=== PATIENT | female | born 1990 | race Caucasian/White ===

== ENCOUNTER → 2017-01-17 | Outpatient (CLI) | payer OTHER ==
[~2017-01-17] MED LIST: Z.0.BCPILL PO
[2017-01-17 07:40] LABS: BASOPHIL % 0.2 % (0.0-2.0); EOSINOPHIL # 0.1 TH/MM3 (0-0.4); EOSINOPHIL % 1.2 % (0.0-4.0); HEMATOCRIT 40.5 % (35.0-46.0); HEMO FLAGS DIFF FINAL; LYMPH % 33.9 % (9.0-44.0); MEAN CELL VOLUME 87.1 FL (80.0-100.0); MEAN CORPUSCULAR HEMOGLOBIN 28.2 PG (27.0-34.0); MEAN CORPUSCULAR HGB CONC 32.4 % (32.0-36.0); MONO % 5.7 % (0.0-8.0); PLATELET COUNT 341 TH/MM3 (150-450); RED BLOOD COUNT 4.66 MIL/MM3 (4.00-5.30); RED CELL DISTRIBUTION WIDTH 13.4 % (11.6-17.2); WHITE BLOOD COUNT 11.8 TH/MM3 (4.0-11.0)
[2017-01-17 07:59] LABS: BACTERIA, URINE OCC /hpf; BLOOD, URINE NEG (NEG); GLUCOSE,URINE NEG (NEG); KETONE, URINE NEG (NEG); MUCUS URINE FEW /lpf (OCC); NITRITE,URINE NEG (NEG); PH, URINE 5.5 (5.0-8.5); SQUAMOUS EPITHELIAL CELL URINE 8 /hpf (0-5); URINE COLOR YELLOW (YELLW/STRAW)
[2017-01-17 08:09] LABS: WESTERGREN SEDIMENTATION RATE 47 mm/hr (0-20)
[2017-01-17 08:11] LABS: ANION GAP 6 MEQ/L (5-15); AST (GOT) 19 U/L (15-37); BICARBONATE 24.8 MEQ/L (21.0-32.0); BLOOD UREA NITROGEN 9 MG/DL (7-18); CHLORIDE 109 MEQ/L (98-107); GLOMERULAR FILTRATION RATE 107 ML/MIN (>89); GLUCOSE,FASTING 88 MG/DL (74-99); POTASSIUM 4.1 MEQ/L (3.5-5.1); SODIUM (NA) 140 MEQ/L (136-145)
[2017-01-17 08:35] LABS: ALKALINE PHOSPHATASE 68 U/L (45-117); ALT (GPT) 28 U/L (10-53); FERRITIN 15 NG/ML (8-252); HDL CHOLESTEROL 31.5 MG/DL (40.0-60.0); TOTAL BILIRUBIN ADULT 0.2 MG/DL (0.2-1.0)
[2017-01-17 08:42] LABS: CREATINE KINASE 82 U/L (26-192)
[2017-01-17 08:43] LABS: LDL CHOLESTEROL 73 MG/DL (0-99); TRANSFERRIN IRON PROFILE 280 MG/DL (200-360)
== END ==
LOC: CLAB 06:57
PROVIDERS: ATTEND Family Medicine
DX: E78.2 Mixed hyperlipidemia (principal); J31.0 Chronic rhinitis; M79.7 Fibromyalgia; M54.5 Low back pain; M54.2 Cervicalgia; R82.90 Unspecified abnormal findings in urine
CPT/HCPCS: 36415; 80053; 80061; 81001; 82306; 82550; 82607; 82728; 82746; 83540; 83550; 84443; 85025; 85652; 87086

== ENCOUNTER → 2017-05-14 | Outpatient (CLI) | payer OTHER ==
[2017-05-14 07:30] LABS: AUTOMATED NEUTROPHIL # 7.6 TH/MM3 (1.8-7.7); BASOPHIL % 0.3 % (0.0-2.0); EOSINOPHIL # 0.2 TH/MM3 (0-0.4); EOSINOPHIL % 1.4 % (0.0-4.0); HEMATOCRIT 43.4 % (35.0-46.0); HEMO FLAGS DIFF FINAL; LYMPH % 33.2 % (9.0-44.0); LYMPHOCYTE # 4.3 TH/MM3 (1.0-4.8); MEAN CELL VOLUME 90.1 FL (80.0-100.0); MEAN CORPUSCULAR HGB CONC 32.2 % (32.0-36.0); MONO % 5.8 % (0.0-8.0); NEUT % 59.3 % (16.0-70.0); PLATELET COUNT 342 TH/MM3 (150-450); RED BLOOD COUNT 4.82 MIL/MM3 (4.00-5.30); RED CELL DISTRIBUTION WIDTH 13.4 % (11.6-17.2); WHITE BLOOD COUNT 12.9 TH/MM3 (4.0-11.0)
[2017-05-14 07:50] LABS: BACTERIA, URINE FEW /hpf; BLOOD, URINE NEG (NEG); GLUCOSE,URINE NEG (NEG); KETONE, URINE NEG (NEG); NITRITE,URINE NEG (NEG); PH, URINE 6.5 (5.0-8.5); SQUAMOUS EPITHELIAL CELL URINE 2 /hpf (0-5); URINE COLOR LIGHT-YELLOW (YELLW/STRAW)
[2017-05-14 07:58] LABS: ANION GAP 6 MEQ/L (5-15); AST (GOT) 10 U/L (15-37); BICARBONATE 24.6 MEQ/L (21.0-32.0); BLOOD UREA NITROGEN 5 MG/DL (7-18); CHLORIDE 107 MEQ/L (98-107); GLOMERULAR FILTRATION RATE 106 ML/MIN (>89); GLUCOSE,FASTING 89 MG/DL (74-99); SODIUM (NA) 138 MEQ/L (136-145)
[2017-05-14 08:11] LABS: WESTERGREN SEDIMENTATION RATE 35 mm/hr (0-20)
[2017-05-14 08:24] LABS: ALKALINE PHOSPHATASE 64 U/L (45-117); ALT (GPT) 28 U/L (10-53); FERRITIN 18 NG/ML (8-252); HDL CHOLESTEROL 33.9 MG/DL (40.0-60.0); LDL CHOLESTEROL 100 MG/DL (0-99); TOTAL BILIRUBIN ADULT 0.3 MG/DL (0.2-1.0); TRANSFERRIN IRON PROFILE 265 MG/DL (200-360)
[2017-05-14 08:39] LABS: CREATINE KINASE 47 U/L (26-192)
== END ==
LOC: CLAB 06:44
PROVIDERS: ATTEND Family Medicine
DX: E78.2 Mixed hyperlipidemia (principal); E53.8 Deficiency of other specified B group vitamins; E55.9 Vitamin D deficiency, unspecified; E03.9 Hypothyroidism, unspecified; M54.5 Low back pain; M54.2 Cervicalgia; M79.7 Fibromyalgia; J31.0 Chronic rhinitis
CPT/HCPCS: 36415; 80053; 80061; 81001; 82306; 82550; 82607; 82728; 82746; 83540; 83550; 84443; 85025; 85652; 87086

== ENCOUNTER 2017-08-26 17:11 | Emergency (ER) | payer OTHER ==
[~2017-08-26] VITALS: Ht 162.6 cm; Wt 100.0 kg
[2017-08-26 17:13] VITALS: BP 172/86; PULSE 114; RESP 18; TEMP 98.2; O2SAT 99
[2017-08-26] MEDS ORDERED: LEVO50TA4 PO (17:17)
--- NOTE | 2017-08-26 17:49 | PD ---
HPI Chief Complaint: Injury Time Seen by Provider: 17:36 Travel History International Travel<30 days: No Contact w/Intl Traveler<30days: No Traveled to known affect area: No History of Present Illness HPI 27-year-old female here for evaluation of right ankle pain and swelling after an inversion injury that occurred at around 3:00 PM. The patient reports similar injury in December of this year, however she did not have the ankle evaluated at that time. Pain is moderate, constant, worse with weightbearing. She is unable to bear weight because of the pain. She denies right knee pain or right foot pain. No other injuries. She took ibuprofen and shortly after the injury occurred. [facility]LY [facility] Past Medical History Immunizations Current: Yes Thyroid Disease: Yes (HYPO) Tetanus Vaccination: > 5 Years Influenza Vaccination: No ?: Unknown LMP: 08/19/17 : 0 Past Surgical History Surgical History: No Previous Surgery Social History Alcohol Use: Yes (RARE) Tobacco Use: No Substance Use: No Allergies-Medications (Allergen,Severity, Reaction): Coded Allergies: No Known Allergies (Verified Adverse Reaction, Unknown, 08/26/17) Reported Meds & Prescriptions Reported Meds & Active Scripts Active Reported Levothyroxine (Levothyroxine Sodium) 50 Mcg Tab 50 Mcg PO DAILY Review of Systems Except as stated in HPI: all other systems reviewed are Neg Physical Exam Narrative GENERAL: Well-developed, well-nourished, comfortable, no apparent distress. SKIN: Focused skin assessment warm/dry. Mild ecchymosis to right lateral ankle. HEAD: Atraumatic. Normocephalic. CARDIOVASCULAR: Regular rate and rhythm. Bilateral dorsalis pedis pulses are brisk and equal. RESPIRATORY: No accessory muscle use. MUSCULOSKELETAL: Right ankle with moderate diffuse edema greatest over the lateral malleolus with ecchymosis over lateral malleolus, no lacerations. There is moderate lateral and medial malleolar or tenderness. No tenderness or swelling to the right foot, no tenderness over the proximal right fifth metatarsal. No right proximal fibular tenderness. Normal range of motion in the right foot and ankle. All compartments in the right lower extremity are supple. Right lower extremity is neurovascularly intact. NEUROLOGICAL: Awake and alert. No obvious cranial nerve deficits. Motor grossly within normal limits. Normal speech. PSYCHIATRIC: Appropriate mood and affect; insight and judgment normal. Data Data Last Documented VS Vital Signs Date Time Temp Pulse Resp B/P (MAP) Pulse Ox O2 Delivery O2 Flow Rate FiO2 08/26/17 18:25 86 08/26/17 17:13 98.2 18 99 Orders Orders Ankle, Complete ([id number]) (08/26/17 ) Crutches (08/26/17 18:23) Boot Fracture (08/26/17 ) MDM Medical Decision Making Medical Screen Exam Complete: Yes Emergency Medical Condition: Yes Differential Diagnosis Right ankle sprain versus fracture Narrative Course Initial vital signs show heart rate 114, blood pressure 172/86, pulse ox 99% on room air, oral temp of 98.2F. Repeat heart rate without any intervention is 86. Right ankle x-ray: Small fracture fragment at the distal aspect of the lateral malleolus with soft tissue swelling. Patient has no right proximal fibular tenderness. She will be placed in a fracture boot and provided crutches and advised to follow-up with an orthopedist in the next week. I offered pain medication, however the patient is happy with taking ibuprofen. MATEUS endorsed. She was informed on when to return to the emergency department. She verbalizes understanding and agreement with plan. Diagnosis Primary Impression: Closed right ankle fracture Qualified Codes: S82.891A - Other fracture of right lower leg, initial encounter for closed fracture Referrals: Dat Thomson MD 1 week Orthopedist Additional Instructions: Follow-up with orthopedist Dr. Thomson or an orthopedist of your choice this week. Return to the emergency department for worsening symptoms or any other concerns. Disposition: 01 DISCHARGE HOME Condition: Stable Alejandro Williamson MD Aug 26, 2017 17:49
--- NOTE | 2017-08-26 18:05 | RADRPT ---
EXAM DATE/TIME: 08/26/2017 17:51 [facility] COMPARISON: No previous studies available for comparison. INDICATIONS : Pain and lateral swelling from twisting right ankle injury. MEDICAL HISTORY : None. SURGICAL HISTORY : None. ENCOUNTER: Initial ACUITY: 1 day PAIN SCORE: 8/10 LOCATION: Right ankle FINDINGS: There is soft tissue swelling seen laterally. There appears to be a small fracture fragment at the in ferior lateral distal fibula. Its appears to represent a suspected avulsion fracture. The ankle is no rmally aligned. No other fracture seen. CONCLUSION: Small fracture fragment at the distal aspect of the lateral malleolus with soft tissue swelling. Misael Rodriguez MD on August 26, 2017 at 18:02 Board Certified Radiologist. This report was verified electronically.
[2017-08-26 18:25] VITALS: BP_SYST 86; PULSE 86
== END 2017-08-26 18:51 | disposition home or self-care (01) ==
LOC: NEPD 17:11
DX: S82.61XA Displaced fracture of lateral malleolus of right fibula, initial encounter for closed fracture (principal); E03.9 Hypothyroidism, unspecified; X50.1XXA Overexertion from prolonged static or awkward postures, initial encounter; Z79.899 Other long term (current) drug therapy
CPT/HCPCS: 73610; 99283; E0113; L1830; L2114

== ENCOUNTER → 2017-10-05 | Outpatient (CLI) | payer OTHER ==
[2017-10-05 09:09] LABS: AUTOMATED NEUTROPHIL # 6.9 TH/MM3 (1.8-7.7); BACTERIA, URINE FEW /hpf; BASOPHIL # 0.1 TH/MM3 (0-0.2); BASOPHIL % 0.5 % (0.0-2.0); BILIRUBIN, URINE NEG (NEG); BLOOD, URINE NEG (NEG); EOSINOPHIL # 0.1 TH/MM3 (0-0.4); EOSINOPHIL % 1.4 % (0.0-4.0); GLUCOSE,URINE NEG (NEG); HEMATOCRIT 42.9 % (35.0-46.0); HEMO FLAGS DIFF FINAL; HEMOGLOBIN 14.5 GM/DL (11.6-15.3); KETONE, URINE NEG (NEG); LYMPH % 28.4 % (9.0-44.0); LYMPHOCYTE # 3.1 TH/MM3 (1.0-4.8); MEAN CELL VOLUME 89.3 FL (80.0-100.0); MEAN CORPUSCULAR HEMOGLOBIN 30.2 PG (27.0-34.0); MEAN CORPUSCULAR HGB CONC 33.9 % (32.0-36.0); MEAN PLATELET VOLUME 7.5 FL (7.0-11.0); MONO % 5.7 % (0.0-8.0); MONOCYTE # 0.6 TH/MM3 (0-0.9); MUCUS URINE FEW /lpf (OCC); NITRITE,URINE NEG (NEG); PLATELET COUNT 348 TH/MM3 (150-450); RED CELL DISTRIBUTION WIDTH 13.4 % (11.6-17.2); SQUAMOUS EPITHELIAL CELL URINE 5 /hpf (0-5); URINE COLOR YELLOW (YELLW/STRAW); URINE LEUKOCYTE ESTERASE MOD (NEG); WHITE BLOOD COUNT 10.8 TH/MM3 (4.0-11.0)
[2017-10-05 09:36] LABS: WESTERGREN SEDIMENTATION RATE 17 mm/hr (0-20)
[2017-10-05 09:38] LABS: ALBUMIN 3.4 GM/DL (3.4-5.0); ANION GAP 10 MEQ/L (5-15); AST (GOT) 19 U/L (15-37); BICARBONATE 21.1 MEQ/L (21.0-32.0); BLOOD UREA NITROGEN 7 MG/DL (7-18); CALCIUM 8.8 MG/DL (8.5-10.1); CHLORIDE 108 MEQ/L (98-107); CHOLESTEROL 157 MG/DL (120-200); CREATININE 0.63 MG/DL (0.50-1.00); GLOMERULAR FILTRATION RATE 112 ML/MIN (>89); GLUCOSE,FASTING 96 MG/DL (74-99); LDH SERUM 126 U/L (84-246); SODIUM (NA) 139 MEQ/L (136-145); TRIGLYCERIDES 81 MG/DL (42-150)
[2017-10-05 10:04] LABS: % SATURATION IRON PROFILE 9.5 % (20-50); ALKALINE PHOSPHATASE 63 U/L (45-117); ALT (GPT) 31 U/L (10-53); FERRITIN 21 NG/ML (8-252); FOLATE 18.5 NG/ML (3.1-17.5); HDL CHOLESTEROL 32.7 MG/DL (40.0-60.0); IRON (FE) 36 MCG/DL (50-170); LDL CHOLESTEROL 108 MG/DL (0-99); TOTAL BILIRUBIN ADULT 0.3 MG/DL (0.2-1.0); TOTAL IRON BINDING CAPACITY 379 MCG/DL (250-450); TOTAL PROTEIN 7.7 GM/DL (6.4-8.2); TRANSFERRIN IRON PROFILE 271 MG/DL (200-360); URIC ACID 4.7 MG/DL (2.6-6.0)
[2017-10-05 10:13] LABS: CREATINE KINASE 44 U/L (26-192)
[2017-10-05 10:26] LABS: RHEUMATOID FACTOR TRIGGER LESS THAN 10.0 IU/ML (0.0-14.9)
[2017-10-05 10:37] LABS: RHEUMATOID FACTOR SCREEN NEGATIVE (NEGATIVE)
[2017-10-05 15:58] LABS: ANA SCREEN NEG (NEG)
[2017-10-08 07:52] LABS: CYCLIC CITRULLINATED PEPTIDE LESS THAN 16 Units
== END ==
LOC: CLAB 08:19
DX: E78.2 Mixed hyperlipidemia (principal); J31.0 Chronic rhinitis; M79.7 Fibromyalgia; M54.2 Cervicalgia; M54.5 Low back pain; E03.9 Hypothyroidism, unspecified; E55.9 Vitamin D deficiency, unspecified; E53.8 Deficiency of other specified B group vitamins; R82.90 Unspecified abnormal findings in urine
CPT/HCPCS: 36415; 80053; 80061; 81001; 82306; 82550; 82607; 82728; 82746; 83540; 83550; 83615; 84443; 84550; 85025; 85652; 86038; 86200; 86430; 87086